=== PATIENT | female | born 1980 ===

== ENCOUNTER 2018-04-02 08:30 | Outpatient (AMBR) | payer MEDICAID, SELFPAY ==
--- NOTE | 2018-03-25 13:44 | PTNOTE_ITS ---
PT OP Initial Eval Patient Information Visit Reasons: sciatic pain Medical Diagnosis: M54.3 Treatment Dx #1: LBP Start of Care: 03/25/18 Date of Onset: 3 months ago Initial Assessment Subjective Pt is 37 yr old female who c/o LBP with radiation into the L LE down the thigh. She reports shooting pain into the back of the leg with standing and with sitting she feels a sharp pain in the L glute and it spasms. The mm relaxors make her sleepy. 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 The last time she had a flare-up she was out of work for 3 days. She has 3 children. PMH: cholesysectomy Imaging: none Pt goal: less LBP to work and study Objective Trunk ArOM: B SB 75% with pain B Extension: 40% with pain around L5-S1 on L side Flexion: 10 from floor with increased LBP and posterior thigh pain B rotation: full with pain to the L R SLR ROM: 75 deg with posterior knee neural tension and LBP. L SLR: 90 deg LE strength: B hamstrings: 4/5 Quads 4/5 Hip abd/add 4/5 YVONNE's: hip tightness on R SLR: positive on L TTP: moderate R paraspinals L2-5, PSIS L>R lumbar paraspinal atrophy Gaenslen's, iliac compresion negative SI shear: positive Assessment Pt presents with trunk extension sensitivity and pain over the SI joints consistent with SI joint irritation/dysfunction. Pt has TTP and increased tone of paraspinals of lower L/S and over B SI joints that limits trunk AROM in all planes of motion. Left SLR testing is positive but referral pattern does not match sciatica. Eval followed by HEP with materials. Short Term and [employer] Goals 1. Ind with HEP 2. Improved B quad and hamstring strength to 4+/5 3. Pt will improve HH chore tolerance to 30 minutes 4. Decreased muscle spasm and TTP of lumbar paraspinals from mod to min Treatment Plan Pt has 5 visits authorized and will be scheduled for 2x a week. 1. Manual therapy 2. Therex 3. Modalities as indicated, moist heat, ice, estim, mechanical traction Frequency and Duration 2x a week for 6 weeks Certification Dates: 03/25/18 to 06/22/18 Office Procedures PT Procedures PT Date of Service: 03/25/18 OP PT Eval Mod Complex 30 minutes: Yes
--- NOTE | 2018-04-02 10:38 | PT.ODAYNRPT ---
PT Outpatient Daily Note Date of Service: April 02, 2018 OP Daily Note Visit Reasons: sciatic pain Outpatient Physical Therapy Treatment Date: 04/02/18 Subjective: pt reported back pain upon visit today. she reports increase in pain with prolong sitting in class. Objective: see flow sheet. Assessment: worked on PROM but also AROM stretches and advised pt to continue at home or when she has free time. pt tolerated HP throughout ther ex with no complaints. pt was getting stretch on both side of the hips and low back. muscle fatigue with tick tocks using thera band but she completed all reps. overall pt did well and is aware of HEP. Plan: continue POC per PT. Length of Time (minutes) of Treatment: 30 Minutes Office Procedures PT Procedures PT Date of Service: 03/25/18 OP PT Eval Mod Complex 30 minutes: Yes PT Procedures PT Date of Service: 04/02/18 Therapeutic Exercise 30 minutes: Yes
== END 2018-04-11 23:59 | disposition home or self-care (01) ==
PROVIDERS: PCP Family Medicine; Referring Provider Family Medicine; Visit Provider Family Medicine
DX: I10 Essential (primary) hypertension (principal)
CPT/HCPCS: 97110; 97162